=== PATIENT | male | born 1960 | race African-American/Black ===

== ENCOUNTER 2017-05-17 03:31 | Day surgery (SDC) | payer MEDICARE ==
[~2017-05-17] VITALS: Ht 182.9 cm; Wt 79.5 kg
--- NOTE | ~2017-05-17 | OP ---
PATIENT NAME: THERESE SANTIAGO MEDICAL RECORD: [id number] :58 LOCATION:[facility] ADMISSION DATE: SURGEON: THERESE MURRY MD DATE OF OPERATION: 05/17/2017 PREOPERATIVE DIAGNOSES: End-stage renal disease and dependence on hemodialysis and thrombosis of right wrist, forearm, Ina-type radiocephalic arteriovenous fistula without other dialysis access. POSTOPERATIVE DIAGNOSES: End-stage renal disease and dependence on hemodialysis and thrombosis of right wrist, forearm, Ina-type radiocephalic arteriovenous fistula without other dialysis access. OPERATION PERFORMED: Percutaneous ultrasound-guided access and fistulogram, right arm with AngioJet mechanical thrombolysis and balloon angioplasty of long stricture of cephalic vein from wrist, antecubital space, and a selective right radial artery arteriogram and then in addition a separate procedure is ultrasound and fluoroscopic-guided insertion of the right internal jugular HemoSplit 19-cm long tunneled dialysis catheter. SURGEON: Therese Murry MD ANESTHESIA: General with LMA per SALES REPRESENTATIVE. REFERRING PHYSICIAN: Dr. Diego and Dr. Mae. PREOPERATIVE NOTE: This is a 56-year-old -[place] male on hemodialysis via a right wrist Ina-type radiocephalic fistula, has had problems with that access. I think last week, he had a fistulogram with mechanical thrombolysis at [facility] per Dr. Diego and had dialysis last Tuesday, but when he presented for dialysis yesterday, on Tuesday, his fistula was again thrombosed. He was scheduled to come to the hospital as an outpatient this morning for a fistulogram and mechanical thrombolysis procedure; however, instead he came to the Emergency Room last night with shortness of breath. His respiratory symptoms are much improved after bronchodilator updraft treatments and he is brought to the operating room with plans to go ahead as scheduled and tried to salvage the fistula and also likely insert a TDC. Under anesthesia in supine position, the patient was prepped and draped in sterile manner. I examined his fistula with ultrasound and noted there was an area of stricture or stenosis over a large portion of the forearm course of the cephalic vein. There was a good deal of fairly well organized thrombus present. I accessed the fistula in a retrograde manner from the cephalic vein above the antecubital space and this was done with ultrasound guidance and micropuncture technique and eventually a 6-Tunisian introducer was placed. Later in the procedure, I used an ultrasound and micropuncture technique to access the fistula just proximal to the arterial anastomosis and initially a 6 and then a 7-Tunisian introducer were placed. The patient was systemically heparinized with 5000 units of heparin after which I was able to advance a 0.035 angled roadrunner wire through a 5-Tunisian angled glide catheter from the upper arm access port to the arterial anastomosis. I was able to cross the arterial anastomosis with the wire and catheter and then performed a selective right radial artery arteriogram. This revealed a small radial artery distal to the anastomosis, but a much larger radial artery OPERATIVE REPORT [id number] THERESE SANTIAGO proximal and apparent large thrombus in the arterial anastomosis with probably some stenosis there as well. I used a 5-Tunisian Malachi embolectomy over the wire balloon catheter to remove thrombus from the arterial anastomosis and then performed an angioplasty of the arterial anastomosis with a 6 mm angioplasty balloon. There was an approximate 80% stenosis in the anastomosis and this was dilated to full effacement of the balloon and subsequent contrast injections revealed no discrete arterial anastomotic stenosis. I treated the body of the fistula also with Malachi balloon, clot dislodgement and used an AngioJet catheter inserted from the distal site to lyse and remove thrombus along the course of the cephalic vein. Contrast injection demonstrated a very irregular ratty cephalic vein with stricture basically from the arterial anastomosis to nearly to the antecubital space with runoff both via the cephalic vein above the elbow, but also probably primarily via the basilic vein. I used an 8 mm diameter angioplasty balloon to dilate the strictured cephalic vein and helped to macerate and compact residual thrombus along the wall of the fistula. Subsequent contrast injection revealed flow in the fistula, but a very irregular ratty luminal surface. A repeat duplex ultrasound Doppler color flow examination revealed the presence of pulsatile continuous turbulent flow along the entire course of the fistula from wrist to antecubital space after the hardware was removed. The introducers were removed and the puncture sites closed with a [id number] 4-0 Prolene sutures and dressings of Ultrafoam, Tegaderm, and Cavilon skin prep. I did not reverse the patient's heparin and I did not feel confident that this fistula would stay open overnight much less at this point provide a reliable hemodialysis access. So I then performed insertion of a 19 cm long HemoSplit tunneled dialysis catheter via the right internal jugular vein. First, the vein was accessed at the base of the neck with ultrasound guidance and micropuncture technique. Through the 4-Tunisian sheath, I injected contrast to perform a superior venacavogram which demonstrated a mild stenosis of the brachiocephalic veins near their confluence and a stenosis of the internal jugular vein from prior catheter use in this patient, but no critical or limiting stenosis. Under fluoroscopy, I was unable to pass dilators and lastly a peel-away dilator sheath from a small incision there at the base of the neck on the right. I chose a 19-cm HemoSplit, made a small incision beneath the clavicle and pulled the catheter from the incision subcutaneously up to the primary incision. The catheter was then inserted through the peel-away sheath as it was removed. Repeat fluoroscopy demonstrated the catheter to be in good position with its tip in the right atrium and there were no kink or any other visible complication. The cervical wound was closed with interrupted inverted 3-0 Vicryl and Dermabond glue and dressed with Maxorb Ag, Tegaderm, and Cavilon skin prep. A chlorhexidine BioGuard or Biopatch was placed on the catheter at its exit site and the catheter was sutured to the skin with 2-0 Prolene near the entry site. A standard sterile CVL dressing was then applied over that. The patient was awakened and taken to the recovery room. Blood loss during the operation was less than 5 cc. None was replaced. All sponges, instruments and needles were accounted for. No drain was used and no surgical specimen was submitted for histopathology. I will recommend that the patient stay in overnight observation on a continuous heparin IV drip overnight. He was short of breath this morning and a little bit postop and will have a bronchodilator updraft treatment in the recovery room. I think that he will need to dialyze here either tonight or tomorrow. If the fistula remains patent tomorrow, he could be discharged on Eliquis. I would advise not using or trying to use the fistula for a couple of weeks. I would like to have him scheduled to come back to [facility] perhaps next week or followup OPERATIVE REPORT [id number] THERESE SANTIAGO angiogram. He may need stenting of a long segment of the cephalic vein in the forearm or it may barrel turner that he simply is a new access constructed. TRANSINT:[id number] Voice Confirmation ID: [id number] DOCUMENT ID: [id number] THERESE MURRY MD at 1546 CC: RENE DIEGO MD and CARLOS MAE MD [id number] DICTATION DATE: 05/17/17 180 WHEEL INSTALLER: 05/17/17 2108 [facility] [place] 05/18/17 [place] [id number]
[2017-05-17 04:26] LABS: BASOPHILS 0.2 % (0-2); EOSINOPHILS 3.1 % (0-7); HEMATOCRIT 31.7 % (42.0-54.0); HEMOGLOBIN 10.1 g/dL (13.5-17.5); IMMATURE GRANULOCYTES 0.1 % (0-5); LYMPHOCYTES 21.1 % (15-50); MCH 30.2 pg (26.0-34.0); MCHC 31.9 g/dL (31.0-37.0); MCV 94.9 fL (80.0-100.0); MEAN PLATELET VOLUME 9.9 fL (7.4-10.4); NEUTROPHILS 70.5 % (40-80); PLATELET COUNT 186 10x3/uL (130-400); RBC 3.34 10x6/uL (4.20-6.10); RDW 12.9 % (11.5-14.5); WBC 8.4 10x3/uL (4.8-10.8)
[2017-05-17 05:00] LABS: ALBUMIN 3.5 g/dL (3.4-5.0); ALKALINE PHOSPHATASE 68 U/L (46-116); ALT (SGPT) 21 U/L (10-68); BILIRUBIN - TOTAL 0.36 mg/dL (0.2-1.3); CALC OSMOLALITY 305 mosm/kg (275-300); CALCIUM 7.1 mg/dL (8.5-10.1); CARBON DIOXIDE 22.8 mmol/L (21.0-32.0); CHLORIDE - SERUM 103 mmol/L (98-107); CREATININE - SERUM 15.4 mg/dL (0.6-1.3); POTASSIUM - SERUM 4.8 mmol/L (3.5-5.1); PROTEIN - SERUM 7.6 g/dL (6.4-8.2); SODIUM 142 mmol/L (136-145); UREA NITROGEN 75 mg/dL (7-18); eGFR NON AFRICAN AMERICAN 3 mL/min (90-120)
[2017-05-17 05:03] LABS: GLUCOSE 116 mg/dL (74-106)
[2017-05-17 05:18] LABS: CKMB 5.3 U/L (0.0-3.6); CREATINE KINASE 528 UL (21-232)
[2017-05-17 05:19] LABS: PRO BNP 51320 pg/mL (0-125)
[2017-05-17 05:20] LABS: TROPONIN-I 0.183 ng/mL (0.000-0.060)
[2017-05-17 07:53] LABS: COLOR YELLOW (YELLOW)
[2017-05-17 07:54] LABS: APPEARANCE CLEAR (CLEAR); BACTERIA FEW /hpf (NONE SEEN); BILIRUBIN NEGATIVE (NEGATIVE); EPITHELIAL CELLS 0-5 /hpf (0-5); GLUCOSE 100 mg/dL (NEGATIVE); GRANULAR CAST OCC /lpf (NONE SEEN); KETONE NEGATIVE (NEGATIVE); MUCUS <1+ /lpf (NONE SEEN); NITRITE NEGATIVE (NEGATIVE); PROTEIN 3+ mg/dL (NEGATIVE); RED CELLS - URINE 0-5 /hpf (0-5); UROBILINOGEN NORMAL (NORMAL); WHITE CELLS - URINE 0-5 /hpf (0-5)
[2017-05-17] MEDS ORDERED: NORVASC5 MG PO (10:51)
[2017-05-17] MEDS ORDERED: HYDRALAZINE HCL25 MG PO (10:53)
[2017-05-17] MEDS ORDERED: LASIX80 MG PO (10:53)
[2017-05-17] MEDS ORDERED: TRUSOPT 2 % OPT10 ML EACH EYE (10:54)
[2017-05-17] MEDS ORDERED: XALATAN 0.0052.5 ML EACH EYE (10:55)
[2017-05-17] MEDS ORDERED: TOPROL XL50 MG PO (10:55)
[2017-05-17] MEDS ORDERED: PHOSLO667 MG PO (10:55)
[2017-05-17 20:00] VITALS: BP 184/97
[2017-05-17 23:17] VITALS: BP 184/97; Ht 182.9 cm; Wt 79.5 kg
[2017-05-18] VITALS: BP 113/64; BP 149/74
[2017-05-18 04:00] VITALS: BP 146/73
[2017-05-18 05:49] LABS: BASOPHILS 0.3 % (0-2); EOSINOPHILS 0.3 % (0-7); HEMATOCRIT 30.3 % (42.0-54.0); HEMOGLOBIN 9.7 g/dL (13.5-17.5); IMMATURE GRANULOCYTES 0.3 % (0-5); MCH 29.9 pg (26.0-34.0); MCV 93.5 fL (80.0-100.0); MEAN PLATELET VOLUME 9.8 fL (7.4-10.4); MONOCYTES 4.9 % (2-11); NEUTROPHILS 81.2 % (40-80); PLATELET COUNT 165 10x3/uL (130-400); RBC 3.24 10x6/uL (4.20-6.10); RDW 13.3 % (11.5-14.5); WBC 7.5 10x3/uL (4.8-10.8)
[2017-05-18 06:10] LABS: ALBUMIN 3.4 g/dL (3.4-5.0); ANION GAP 24.5 mmol/L (8-16); BILIRUBIN - TOTAL 0.45 mg/dL (0.2-1.3); CARBON DIOXIDE 18.4 mmol/L (21.0-32.0); CREATININE - SERUM 16.9 mg/dL (0.6-1.3); MAGNESIUM - SERUM 2.1 mg/dL (1.8-2.4); PHOSPHOROUS 7.8 mg/dL (2.5-4.9); POTASSIUM - SERUM 4.9 mmol/L (3.5-5.1); PROTEIN - SERUM 7.4 g/dL (6.4-8.2)
[2017-05-18 08:37] VITALS: BP 177/98
== END 2017-05-18 15:50 | disposition home or self-care (01) ==
LOC: OBSVTIME → D.OPS 03:31 → D.ER 03:31 → D.EDHOLD 05:49 → D.M2 05:49 → OBSVTIME 05:49 → D.M2 05:49 → D.ER 05:49 → EDSTATUS 11:30 → D.EDHOLD 18:36 → D.SDCHOLD 18:36 → D.M2 19:19 → D.OPS 05-18 15:50
PROVIDERS: Family Medicine; Internal Medicine
DX: E11.22 Type 2 diabetes mellitus with diabetic chronic kidney disease (principal); I12.0 Hypertensive chronic kidney disease with stage 5 chronic kidney disease or end stage renal disease; N18.6 End stage renal disease; Z99.2 Dependence on renal dialysis; Z01.812 Encounter for preprocedural laboratory examination

== ENCOUNTER 2017-06-22 09:52 | Emergency (ER) | payer MEDICARE ==
[2017-05-17 23:17] VITALS: BMI 23.8
[~2017-06-22 09:52] MED LIST: HYDRALAZINE HCL25 MG PO; LASIX80 MG PO; NORVASC5 MG PO; PHOSLO667 MG PO; TOPROL XL50 MG PO; TRUSOPT 2 % OPT10 ML EACH EYE; XALATAN 0.0052.5 ML EACH EYE
[2017-06-22 10:50] LABS: BASOPHILS 1.3 % (0-2); EOSINOPHILS 5.6 % (0-7); HEMATOCRIT 35.8 % (42.0-54.0); HEMOGLOBIN 11.2 g/dL (13.5-17.5); IMMATURE GRANULOCYTES 0.4 % (0-5); LYMPHOCYTES 27.6 % (15-50); MCH 30.1 pg (26.0-34.0); MCHC 31.3 g/dL (31.0-37.0); MCV 96.2 fL (80.0-100.0); MEAN PLATELET VOLUME 9.8 fL (7.4-10.4); MONOCYTES 5.9 % (2-11); NEUTROPHILS 59.2 % (40-80); RBC 3.72 10x6/uL (4.20-6.10); RDW 14.2 % (11.5-14.5); WBC 5.6 10x3/uL (4.8-10.8)
[2017-06-22 10:52] LABS: PLATELET COUNT 259 10x3/uL (130-400)
[2017-06-22 11:03] LABS: INR 1.03 (0.85-1.17); PROTIME 13.1 SECONDS (11.6-15.0)
[2017-06-22 11:09] LABS: ALBUMIN 3.7 g/dL (3.4-5.0); ALKALINE PHOSPHATASE 71 U/L (46-116); ALT (SGPT) 32 U/L (10-68); CALC OSMOLALITY 293 mosm/kg (275-300); CARBON DIOXIDE 26.4 mmol/L (21.0-32.0); CHLORIDE - SERUM 101 mmol/L (98-107); CREATININE - SERUM 11.4 mg/dL (0.6-1.3); GLUCOSE 112 mg/dL (74-106); POTASSIUM - SERUM 5.8 mmol/L (3.5-5.1); PROTEIN - SERUM 8.2 g/dL (6.4-8.2); SODIUM 141 mmol/L (136-145); UREA NITROGEN 45 mg/dL (7-18); eGFR NON AFRICAN AMERICAN 5 mL/min (90-120)
[2017-06-22 11:18] LABS: D-DIMER-QUANTITATIVE 10.22 ug/mLFEU (0.20-0.54)
[2017-06-22 11:27] LABS: CREATINE KINASE 684 UL (21-232)
[2017-06-22 11:47] LABS: PRO BNP 72189 pg/mL (0-125)
[2017-06-22 11:48] LABS: CKMB 4.1 U/L (0.0-3.6); TROPONIN-I 0.168 ng/mL (0.000-0.060)
== END 2017-06-22 12:15 | disposition home or self-care (01) ==
LOC: D.ER 09:52
PROVIDERS: Emergency Medicine
DX: I50.9 Heart failure, unspecified (principal); I12.9 Hypertensive chronic kidney disease with stage 1 through stage 4 chronic kidney disease, or unspecified chronic kidney disease; N18.9 Chronic kidney disease, unspecified; Z99.2 Dependence on renal dialysis; E11.9 Type 2 diabetes mellitus without complications; I44.4 Left anterior fascicular block

== ENCOUNTER 2019-10-01 11:40 | Inpatient (IN) | payer MEDICARE ==
[2019-10-01] VITALS (14 sets, daily range): BP systolic 91–216; BP diastolic 51–111; BMI 28.1
[~2019-10-01] VITALS: Ht 182.9 cm; Wt 93.9 kg
--- NOTE | ~2019-10-01 | EC ---
PATIENT:THERESE SANTIAGO DATE OF SERVICE: 10/01/19 SEX: M MEDICAL RECORD: [id number] DATE OF : 58 LOCATION:[facility] AGE OF PATIENT: 59 ADMISSION DATE: 10/01/19 REFERRING PHYSICIAN: INTERPRETING PHYSICIAN: LOLIS HENRY MD ECHOCARDIOGRAM REPORT ECHO CHARGES 4 ECHO COMPLETE Date: 10/02/19 CLINICAL DIAGNOSIS: CHF ECHOCARDIOGRAPHIC MEASUREMENTS (adult normal given) AC root (d.<3.7cm) 3.1 cm LV Septum d (<1.2 cm> 1.0 cm Valve Excursion 1.8 cm LV Septum (systole) 1.2 cm Left Atria (s.<4.0cm> 4.0 cm LVPW d(<1.2cm) 1.1 cm RV (d.<2.3cm) 3.1 cm LVPW (sytole) 1.3 cm LV diastole(<5.6CM) 5.7 cm MV E-F(>70mm/sec) cm LV systole 4.4 cm LVOT Diameter 1.7 cm MV exc.(>10mm) cm Est.ejection fraction (50-75%) % DOPPLER: LVIT cm/sec A 112 cm/sec E 77 cm/sec LA cm/sec RVSP 16.4 mmHg LVOT 109 cm/sec AOP1/2T m/s Asc. Ao 165 cm/sec RVOT 91 cm/sec RA cm/sec PA 101 cm/sec AV Gradient Peak 10.8 mmHg AV Mean 6.9 mmHg AV Area 1.6 cm MV Gradient Peak 10.5 mmHg MV Mean 3.8 mmHg MV Area cm COMMENTS: Bacteriology Teacher: Bella GARCIA Community Service Officer: 4 Dr. Henry TAPE# PACS Pericardial Effusion Y DATE OF SERVICE: FINDINGS: 1. The patient has a normal to mildly enlarged left ventricle, ejection fraction around 50% with moderate left ventricular hypertrophy and inflow characteristics consistent with diastolic dysfunction. 2. Left atrium is normal size, shape, structure, and function. 3. Aortic valve is normal. 4. Mitral valve normal structure and function with trace mitral regurgitation. 6. Tricuspid valve has trace tricuspid regurgitation. RVSP is normal. ECHOCARDIOGRAM REPORT [id number] THERESE SANTIAGO 7. Right ventricle is mildly dilated with normal function. 8. Right atrium is mildly dilated with normal function. 9. Pulmonic valve is normal. NTS:[id number] Voice Confirmation ID: [id number] DOCUMENT ID: [id number] LOLIS HENRY MD CC: [id number] DICTATION DATE: 10/03/19 125 INDUSTRIAL GARAGE SERVICER: 10/03/192199 DIS IN 10/02/19 [facility] [address] [place] [id number]
[2019-10-01 12:17] LABS: BASOPHILS 0.2 % (0-2); EOSINOPHILS 2.3 % (0-7); HEMATOCRIT 41.7 % (42.0-54.0); HEMOGLOBIN 13.1 g/dL (13.5-17.5); IMMATURE GRANULOCYTES 0.4 % (0-5); LYMPHOCYTES 26.1 % (15-50); MCH 29.6 pg (26.0-34.0); MCHC 31.4 g/dL (31.0-37.0); MCV 94.1 fL (80.0-100.0); MEAN PLATELET VOLUME 9.9 fL (7.4-10.4); MONOCYTES 4.8 % (2-11); NEUTROPHILS 66.2 % (40-80); PLATELET COUNT 243 10x3/uL (130-400); RBC 4.43 10x6/uL (4.20-6.10); RDW 14.6 % (11.5-14.5); WBC 10.6 10x3/uL (4.8-10.8)
[2019-10-01 12:22] LABS: CALC OSMOLALITY 304 mosm/kg (275-300); CALCIUM 9.4 mg/dL (8.5-10.1); CARBON DIOXIDE 21.3 mmol/L (21.0-32.0); CHLORIDE - SERUM 101 mmol/L (98-107); CREATININE - SERUM 14.4 mg/dL (0.6-1.3); POTASSIUM - SERUM 5.8 mmol/L (3.5-5.1); SODIUM 139 mmol/L (136-145); UREA NITROGEN 74 mg/dL (7-18); eGFR NON AFRICAN AMERICAN 4 mL/min (90-120)
[2019-10-01 12:23] LABS: GLUCOSE 188 mg/dL (74-106)
[2019-10-01 12:33] LABS: APTT 30.1 SECONDS (22.8-39.4); INR 0.88 (0.85-1.17); PROTIME 11.9 SECONDS (11.6-15.0)
[2019-10-01 12:43] LABS: ALBUMIN 4.2 g/dL (3.4-5.0); ALKALINE PHOSPHATASE 70 U/L (30-120); ALT (SGPT) 25 U/L (10-68); CKMB 4.8 U/L (0.0-3.6); CREATINE KINASE 509 UL (21-232); PROTEIN - SERUM 9.2 g/dL (6.4-8.2)
[2019-10-01 12:46] LABS: PRO BNP 32305 pg/mL (0-125)
[2019-10-01 12:51] LABS: TROPONIN-I 0.126 ng/mL (0.000-0.060)
--- NOTE | 2019-10-01 13:21 | NUR ---
NASAL SWAB COLLECTED FOR COVID-19, LABELED AT BS AND SENT TO LAB
--- NOTE | 2019-10-01 13:30 | NUR ---
REPORT CALLED TO AKOSUA DÍAZ BY THIS RN
--- NOTE | 2019-10-01 13:30 | NUR ---
REPORT TO ART, RN
--- NOTE | 2019-10-01 13:40 | NUR ---
TRANSPORT TO ICU ROOM #2311, CONDITION STABLE
--- NOTE | 2019-10-01 13:50 | NUR ---
PATIENT RECEIVED FROM ER. HR 91 NSR,BP 205/101 O2 VIA NON REBREATHER O2 SAT 92% RR 36 LABORED. NURSES AT BEDSIDE. DIALYSIS PAGED TO BE GIVEN UDPATE. WAITING CALL BACK.
--- NOTE | 2019-10-01 14:56 | NUR ---
PAGED CARDIOLOGY. AWAITING CALL BACK.
--- NOTE | 2019-10-01 15:04 | NUR ---
CARDIOLOGY PAGED BACK. UPDATE GIVEN. WAITING FOR CARDIOLOGY TO ROUND. WILL CONTINUE TO MONITOR
--- NOTE | 2019-10-01 15:33 | NUR ---
RECEIVING DIALYSIS. FAMILY CALLED AND UPDATE GIVEN. WILL CONTINUE TO MONITOR
--- NOTE | 2019-10-01 17:00 | NUR ---
DIALYSIS HERE. TOLERATING PROCEDURE. SR UP X 2. BED IN LOW POSITION.
[2019-10-01 22:58] LABS: ANION GAP 17.7 mmol/L (8-16); CALCIUM 8.7 mg/dL (8.5-10.1); POTASSIUM - SERUM 5.3 mmol/L (3.5-5.1)
[2019-10-01 22:59] LABS: CARBON DIOXIDE 28.6 mmol/L (21.0-32.0); CREATININE - SERUM 10.7 mg/dL (0.6-1.3)
[2019-10-01 23:01] LABS: ALBUMIN 3.7 g/dL (3.4-5.0); BILIRUBIN - TOTAL 0.78 mg/dL (0.2-1.3); PROTEIN - SERUM 7.9 g/dL (6.4-8.2)
[2019-10-02] VITALS (9 sets, daily range): BP systolic 120–171; BP diastolic 62–116; Ht 182.9 cm; Wt 93.9 kg
--- NOTE | 2019-10-02 07:25 | NUR ---
1900 - PT UNDERGOING DIALYSIS, REPORT RECEIVED. ASSESSMENT COMPLETED, SEE FLOWSHEET. BIPAP IN PLACE. LEFT AC PIV TO SL, SEE IV FLOWSHEET. WILL CONTINUE TO MONITOR. 2100 - PT RESTING IN BED, NO ACUTE DISTRESS NOTED. 2300 - REASSESSMENT COMPLETED. 0100 - PT RESTING QUIETLY IN BED. 0300 - REASSESSMENT COMPLETED. 0500 - PT SITTING UP IN BED, NO ACUTE DISTRESS NOTED.
--- NOTE | 2019-10-02 12:22 | NUR ---
0700 REPORT RECIEVED AND CARE ASSUMED OF PATIENT.. SEE FLOW SHEET FOR SHIFT ASSESMENT FINDINGS.. 0800 PT IS AWAKE AND REQUESTING BREAKFAST.. WITHOUT C/O AT THIS TIME.. HI FLOW O2 DECREASED TO 8 LITERS.. 0815 BREAKFAST SERVED AND PATIENT IS FEEDING SELF.. 0900 WITHOUT VISITORS.. PATIENT IS WAITING TO SEE DR Mela DOAN FEELS HE WILL GO HOME TODAY ..
--- NOTE | 2019-10-02 13:10 | NUR ---
PT DISCHARGED AT THIS TIME. VSS UPON DISCHARGE. NEEDS MET.
== END 2019-10-02 15:52 | disposition home or self-care (01) | DRG 291 ==
LOC: D.ER 11:40 → D.ICU 13:00
PROVIDERS: Family Medicine; ADMIT Internal Medicine Nephrology; ATTEND Internal Medicine Nephrology
DX: I13.2 Hypertensive heart and chronic kidney disease with heart failure and with stage 5 chronic kidney disease, or end stage renal disease (principal); N18.6 End stage renal disease; J81.1 Chronic pulmonary edema; E11.22 Type 2 diabetes mellitus with diabetic chronic kidney disease; Z99.2 Dependence on renal dialysis; E87.5 Hyperkalemia; I50.9 Heart failure, unspecified